=== PATIENT | male | born 1955 | race Caucasian/White ===

== ENCOUNTER 2018-01-13 22:50 | Inpatient (IN) | payer OTHER ==
[2018-01-14] MEDS: ONDANSETRON 4 MG INJ IV (01:35)
[2018-01-14] MEDS: morphine 4 MG/ML VIAL IV (01:35)
[2018-01-14] MEDS: ACETAMINOPHEN 325 MG TAB PO (01:35)
[2018-01-14] MEDS: SODIUM CHLORIDE 0.9% 1L BAG IV* (01:35)
[2018-01-14 01:47] LABS: ADD MAN DIFF? NO
[2018-01-14 01:50] LABS: BASOPHILS % 0.3 % (0.0-2.0); EOSINOPHILS # 0.1 10^3/ul (0.0-0.5); EOSINOPHILS % 0.6 % (0.0-7.0); HEMATOCRIT 41.7 % (42.0-52.0); HEMOGLOBIN 13.9 g/dl (14.0-18.0); LYMPHOCYTES # 2.2 10^3/ul (0.8-2.9); LYMPHOCYTES % 18.6 % (15.0-51.0); MEAN CORPUSCULAR HEMOGLOBIN 25.9 pg (29.0-33.0); MEAN CORPUSCULAR HGB CONC 33.3 g/dl (32.0-37.0); MEAN CORPUSCULAR VOLUME 77.7 fl (82.0-101.0); MEAN PLATELET VOLUME 10.1 fl (7.4-10.4); MONOCYTE # 0.7 10^3/ul (0.3-0.9); MONOCYTES % 6.2 % (0.0-11.0); NEUTROPHIL # 8.7 10^3/ul (1.6-7.5); NEUTROPHILS % 73.8 % (39.0-77.0); PLATELET COUNT 357 10^3/UL (140-415); RED BLOOD COUNT 5.37 10^6/ul (4.70-6.10); RED CELL DISTRIBUTION WIDTH 14.7 % (11.5-14.5)
[2018-01-14 01:50] LABS: WHITE BLOOD COUNT 11.7 10^3/ul (4.8-10.8)
[2018-01-14 02:16] LABS: INR 0.93; PARTIAL THROMBOPLASTIN TIME 27.9 Sec (25.0-35.0); PROTIME 12.6 Sec (11.9-14.9)
[2018-01-14 02:20] LABS: LACTIC ACID 1.3 mmol/L (0.5-2.0)
[2018-01-14 02:21] LABS: ALANINE AMINOTRANSFERASE 484 IU/L (13-69); ALBUMIN 4.5 g/dl (3.3-4.9); ALBUMIN/GLOBULIN RATIO 1.12; ALKALINE PHOSPHATASE 521 IU/L (42-121); ANION GAP 20 (8-16); ASPARTATE AMINO TRANSFERASE 170 IU/L (15-46); BILIRUBIN,INDIRECT 0.2 mg/dl (0-1.1); BILIRUBIN,TOTAL 0.2 mg/dl (0.2-1.3); BLOOD UREA NITROGEN 21 mg/dl (7-20); CALCIUM 9.3 mg/dl (8.4-10.2); CARBON DIOXIDE 22 mmol/L (21-31); CHLORIDE 102 mmol/L (97-110); CREATININE 1.13 mg/dl (0.61-1.24); GLUCOSE 258 mg/dl (70-220); POTASSIUM 4.6 mmol/L (3.5-5.1); SODIUM 139 mmol/L (135-144); TOTAL PROTEIN 8.5 g/dl (6.1-8.1)
[2018-01-14 02:34] LABS: TROPONIN-I < 0.012 ng/ml (0.00-0.12)
[2018-01-14 04:07] LABS: URINE BLOOD (Dip) POC Negative (NEGATIVE); URINE GLUCOSE (Dip) POC Negative (NEGATIVE); URINE KETONES (Dip) POC Negative (NEGATIVE); URINE LEUKOCYTE EST (Dip) POC Negative (NEGATIVE); URINE NITRITE (Dip) POC Negative (NEGATIVE); URINE TOTAL PROTEIN POC Negative (NEGATIVE)
[2018-01-14 04:33] LABS: LACTIC ACID 1.3 mmol/L (0.5-2.0)
[2018-01-14 07:11] LABS: LACTIC ACID 1.2 mmol/L (0.5-2.0)
[2018-01-14] MEDS ORDERED: morphine 2 MG INJ IV (10:00)
[2018-01-14] MEDS ORDERED: NACL 0.9% 3 ML SYG IV (10:00)
[2018-01-14] MEDS: SOD CHLORIDE 0.9% 1,000 ML IV ×2 (10:00→21:51)
[2018-01-14] MEDS ORDERED: ONDANSETRON 4 MG INJ IV (10:00)
[2018-01-14] MEDS ORDERED: HYDROCODONE/APAP (5/325) TAB PO (10:00)
[2018-01-14] MEDS ORDERED: ACETAMINOPHEN 325 MG TAB PO (10:00)
[2018-01-14] MEDS: PIPER-TAZO 3.375 GM IV (PMX) 100 ML IVPB ×2 (11:00→22:11)
[2018-01-14] MEDS ORDERED: morphine LIQ (10 MG/5 ML) CUP PO (11:00)
[2018-01-14] MEDS: INDOMETHACIN 50 MG SUPP PR (12:00)
[2018-01-14 14:48] LABS: LIPASE 190 U/L (23-300)
[2018-01-14] MEDS ORDERED: DEXTROSE 50% 50 ML SYRINGE IV ×2 (15:30)
[2018-01-14] MEDS ORDERED: GLUCOSE GEL 15 GRAM TUBE PO ×2 (15:30)
[2018-01-14] MEDS ORDERED: GLUCAGON 1 MG INJ IM (15:30)
[2018-01-14] MEDS ORDERED: GLUCOSE GEL 15 GRAM TUBE BUCCAL (15:30)
[2018-01-14] MEDS ORDERED: FISH OIL 1,000 MG CAP PO (21:00)
[2018-01-14] MEDS: INSULIN ASPART [NOVOLOG] 3 ML PEN SC ×2 (21:44→21:47)
[2018-01-14] MEDS: INSULIN DETEMIR [LEVEMIR] 3ML CART SC (21:48)
[2018-01-15] MEDS: INSULIN ASPART [NOVOLOG] 3 ML PEN SC ×7 (01:24→17:18)
[2018-01-15] MEDS ORDERED: ACCU-CHEK XX (02:00)
[2018-01-15] MEDS: SOD CHLORIDE 0.9% 1,000 ML IV ×3 (05:03→18:42)
[2018-01-15] MEDS: PANTOPRAZOLE 40 MG INJ IV (05:26)
[2018-01-15] MEDS: PIPER-TAZO 3.375 GM IV (PMX) 100 ML IVPB ×3 (05:27→21:31)
[2018-01-15 05:39] LABS: ADD MAN DIFF? NO
[2018-01-15 05:42] LABS: BASOPHILS % 0.7 % (0.0-2.0); EOSINOPHILS # 0.2 10^3/ul (0.0-0.5); EOSINOPHILS % 3.2 % (0.0-7.0); HEMATOCRIT 38.7 % (42.0-52.0); HEMOGLOBIN 12.7 g/dl (14.0-18.0); LYMPHOCYTES # 2.1 10^3/ul (0.8-2.9); LYMPHOCYTES % 35.6 % (15.0-51.0); MEAN CORPUSCULAR HEMOGLOBIN 25.8 pg (29.0-33.0); MEAN CORPUSCULAR HGB CONC 32.8 g/dl (32.0-37.0); MEAN CORPUSCULAR VOLUME 78.7 fl (82.0-101.0); MEAN PLATELET VOLUME 10.6 fl (7.4-10.4); MONOCYTE # 0.6 10^3/ul (0.3-0.9); NEUTROPHIL # 2.9 10^3/ul (1.6-7.5); NEUTROPHILS % 49.7 % (39.0-77.0); PLATELET COUNT 327 10^3/UL (140-415); RED BLOOD COUNT 4.92 10^6/ul (4.70-6.10); RED CELL DISTRIBUTION WIDTH 15.1 % (11.5-14.5)
[2018-01-15 05:42] LABS: WHITE BLOOD COUNT 5.9 10^3/ul (4.8-10.8)
[2018-01-15 06:06] LABS: ALANINE AMINOTRANSFERASE 411 IU/L (13-69); ALBUMIN 3.9 g/dl (3.3-4.9); ALBUMIN/GLOBULIN RATIO 1.18; ALKALINE PHOSPHATASE 498 IU/L (42-121); ANION GAP 17 (8-16); ASPARTATE AMINO TRANSFERASE 240 IU/L (15-46); BILIRUBIN,INDIRECT 0.1 mg/dl (0-1.1); BILIRUBIN,TOTAL 0.1 mg/dl (0.2-1.3); BLOOD UREA NITROGEN 18 mg/dl (7-20); CALCIUM 9.1 mg/dl (8.4-10.2); CARBON DIOXIDE 23 mmol/L (21-31); CHLORIDE 104 mmol/L (97-110); CREATININE 1.07 mg/dl (0.61-1.24); GLUCOSE 241 mg/dl (70-220); MAGNESIUM 1.9 mg/dl (1.7-2.5); PHOSPHORUS 4.5 mg/dl (2.5-4.9); SODIUM 140 mmol/L (135-144); TOTAL PROTEIN 7.2 g/dl (6.1-8.1)
[2018-01-15 06:10] LABS: INR 0.92; PROTIME 12.4 Sec (11.9-14.9)
[2018-01-15] MEDS: PANTOPRAZOLE (EC) 40 MG TAB PO (07:04)
[2018-01-15] MEDS ORDERED: ASPIRIN 81 MG TAB PO (09:00)
[2018-01-15] MEDS ORDERED: IOHEXOL 300MG/ML 30 ML BTL (11:24)
[2018-01-15] MEDS ORDERED: MIDAZOLAM 1 MG/ML 2 ML INJ (11:52)
[2018-01-15] MEDS ORDERED: ROCURONIUM 50 MG INJ (11:52)
[2018-01-15] MEDS ORDERED: PROPOFOL 20 ML (11:52)
[2018-01-15] MEDS ORDERED: FENTAnyl 50 MCG/ML VIAL (11:52)
[2018-01-15] MEDS ORDERED: GLYCOPYRROLATE 0.4 MG INJ (11:52)
[2018-01-15] MEDS ORDERED: CEFAZOLIN 1 GM INJ (11:52)
[2018-01-15] MEDS ORDERED: ONDANSETRON 4 MG INJ (11:52)
[2018-01-15] MEDS ORDERED: DEXAMETHASONE 4 MG/ML 1 ML INJ (11:52)
[2018-01-15] MEDS ORDERED: NEOSTIGMINE 3 MG/3 ML SYRINGE (11:52)
[2018-01-15] MEDS ORDERED: FENTAnyl 50 MCG/ML VIAL IV ×3 (12:00)
[2018-01-15] MEDS ORDERED: MEPERIDINE 25 MG INJ IV (12:00)
[2018-01-15] MEDS ORDERED: EPHEDrine SULFATE 50 MG/5 ML SYG IV (12:00)
[2018-01-15] MEDS ORDERED: MIDAZOLAM 1 MG/ML 2 ML INJ IV (12:00)
[2018-01-15] MEDS ORDERED: hydrALAzine 20 MG INJ IV (12:00)
[2018-01-15] MEDS ORDERED: ALBUTEROL 0.083% (NEB) 2.5 MG/3 ML AMP HHN (12:00)
[2018-01-15] MEDS ORDERED: DIPHENHYDRAMINE 50 MG INJ IV (12:00)
[2018-01-15] MEDS ORDERED: OXYCODONE/ACETAMINOPHEN (5/325) TAB PO ×2 (12:00)
[2018-01-15] MEDS ORDERED: LABETALOL HCL 20MG INJ IV (12:00)
[2018-01-15] MEDS ORDERED: TRIMETHOBENZAMIDE 100 MG/ML VIAL IM (12:00)
[2018-01-15] MEDS ORDERED: ONDANSETRON 4 MG INJ IV (12:00)
[2018-01-15] MEDS ORDERED: IPRATROPIUM (NEB) 0.5 MG/2.5 ML AMP HHN (12:00)
[2018-01-15] MEDS ORDERED: HYDROmorphONE (0.2 MG/ML) 10ML SYG IV ×3 (12:00)
[2018-01-15] MEDS ORDERED: EPINEPHrine 0.1 MG/ML SYG (12:35)
[2018-01-15] MEDS ORDERED: SUGAMMADEX SODIUM 200 MG/2 ML VIAL IV (12:40)
[2018-01-15] MEDS: INDOMETHACIN 50 MG SUPP PR (13:26)
[2018-01-15] MEDS: INSULIN DETEMIR [LEVEMIR] 3ML CART SC (21:29)
[2018-01-16 05:38] LABS: ADD MAN DIFF? NO
[2018-01-16] MEDS: PANTOPRAZOLE 40 MG INJ IV (05:41)
[2018-01-16] MEDS: PIPER-TAZO 3.375 GM IV (PMX) 100 ML IVPB ×3 (05:41→21:32)
[2018-01-16 05:42] LABS: HEMATOCRIT 39.1 % (42.0-52.0); LYMPHOCYTES # 1.8 10^3/ul (0.8-2.9); LYMPHOCYTES % 23.5 % (15.0-51.0); MEAN CORPUSCULAR HEMOGLOBIN 25.8 pg (29.0-33.0); MEAN CORPUSCULAR HGB CONC 33.2 g/dl (32.0-37.0); MEAN CORPUSCULAR VOLUME 77.6 fl (82.0-101.0); MEAN PLATELET VOLUME 10.5 fl (7.4-10.4); MONOCYTE # 0.3 10^3/ul (0.3-0.9); MONOCYTES % 3.4 % (0.0-11.0); NEUTROPHIL # 5.6 10^3/ul (1.6-7.5); NEUTROPHILS % 72.3 % (39.0-77.0); PLATELET COUNT 363 10^3/UL (140-415); RED BLOOD COUNT 5.04 10^6/ul (4.70-6.10); RED CELL DISTRIBUTION WIDTH 15.3 % (11.5-14.5)
[2018-01-16 05:42] LABS: WHITE BLOOD COUNT 7.8 10^3/ul (4.8-10.8)
[2018-01-16 06:07] LABS: PHOSPHORUS 4.7 mg/dl (2.5-4.9)
[2018-01-16 06:07] LABS: MAGNESIUM 1.8 mg/dl (1.7-2.5)
[2018-01-16 06:17] LABS: ALANINE AMINOTRANSFERASE 315 IU/L (13-69); ALBUMIN 3.9 g/dl (3.3-4.9); ALBUMIN/GLOBULIN RATIO 1.11; ALKALINE PHOSPHATASE 452 IU/L (42-121); ANION GAP 20 (8-16); ASPARTATE AMINO TRANSFERASE 85 IU/L (15-46); BILIRUBIN,INDIRECT 0.3 mg/dl (0-1.1); BILIRUBIN,TOTAL 0.3 mg/dl (0.2-1.3); BLOOD UREA NITROGEN 19 mg/dl (7-20); CARBON DIOXIDE 22 mmol/L (21-31); CHLORIDE 105 mmol/L (97-110); CREATININE 1.11 mg/dl (0.61-1.24); GLUCOSE 343 mg/dl (70-220); POTASSIUM 4.6 mmol/L (3.5-5.1); SODIUM 142 mmol/L (135-144); TOTAL PROTEIN 7.4 g/dl (6.1-8.1)
[2018-01-16] MEDS: PANTOPRAZOLE (EC) 40 MG TAB PO (07:49)
[2018-01-16] MEDS: INSULIN ASPART [NOVOLOG] 3 ML PEN SC ×3 (07:53→17:21)
[2018-01-16] MEDS: INSULIN DETEMIR [LEVEMIR] 3ML CART SC (21:32)
[2018-01-17] MEDS: PIPER-TAZO 3.375 GM IV (PMX) 100 ML IVPB (05:40)
[2018-01-17 06:17] LABS: ADD MAN DIFF? NO
[2018-01-17 06:23] LABS: BASOPHILS % 0.2 % (0.0-2.0); EOSINOPHILS % 0.5 % (0.0-7.0); HEMATOCRIT 37.3 % (42.0-52.0); LYMPHOCYTES # 3.3 10^3/ul (0.8-2.9); LYMPHOCYTES % 37.7 % (15.0-51.0); MEAN CORPUSCULAR HEMOGLOBIN 25.5 pg (29.0-33.0); MEAN CORPUSCULAR HGB CONC 32.2 g/dl (32.0-37.0); MEAN CORPUSCULAR VOLUME 79.2 fl (82.0-101.0); MEAN PLATELET VOLUME 10.3 fl (7.4-10.4); MONOCYTE # 0.6 10^3/ul (0.3-0.9); MONOCYTES % 6.3 % (0.0-11.0); NEUTROPHIL # 4.9 10^3/ul (1.6-7.5); PLATELET COUNT 365 10^3/UL (140-415); RED BLOOD COUNT 4.71 10^6/ul (4.70-6.10); RED CELL DISTRIBUTION WIDTH 15.5 % (11.5-14.5)
[2018-01-17 06:23] LABS: WHITE BLOOD COUNT 8.9 10^3/ul (4.8-10.8)
[2018-01-17 06:45] LABS: HEMOGLOBIN A1C 9.7 % (0-5.9)
[2018-01-17 06:48] LABS: ALANINE AMINOTRANSFERASE 225 IU/L (13-69); ALBUMIN 3.7 g/dl (3.3-4.9); ALBUMIN/GLOBULIN RATIO 1.15; ALKALINE PHOSPHATASE 367 IU/L (42-121); ANION GAP 15 (8-16); ASPARTATE AMINO TRANSFERASE 44 IU/L (15-46); BILIRUBIN,INDIRECT 0.4 mg/dl (0-1.1); BILIRUBIN,TOTAL 0.4 mg/dl (0.2-1.3); BLOOD UREA NITROGEN 23 mg/dl (7-20); CALCIUM 8.6 mg/dl (8.4-10.2); CARBON DIOXIDE 27 mmol/L (21-31); CHLORIDE 106 mmol/L (97-110); CREATININE 1.04 mg/dl (0.61-1.24); GLUCOSE 191 mg/dl (70-220); POTASSIUM 4.1 mmol/L (3.5-5.1); SODIUM 144 mmol/L (135-144); TOTAL PROTEIN 6.9 g/dl (6.1-8.1)
[2018-01-17] MEDS: INSULIN ASPART [NOVOLOG] 3 ML PEN SC ×2 (08:15→11:30)
[2018-01-17] MEDS: PANTOPRAZOLE (EC) 40 MG TAB PO (08:15)
== END 2018-01-17 15:29 | disposition home or self-care (01) | DRG 445 ==
LOC: FTE 22:50 → PP2 01-17 03:17 → MS3 01-14 06:08
PROC: 0FC98ZZ Extirpation of Matter from Common Bile Duct, Via Natural or Artificial Opening Endoscopic (ICD-10-PCS; principal; 2018-01-15 11:51)
PROC: 0F798DZ Dilation of Common Bile Duct with Intraluminal Device, Via Natural or Artificial Opening Endoscopic (ICD-10-PCS; 2018-01-15 11:51)
PROC: 0FPB8DZ Removal of Intraluminal Device from Hepatobiliary Duct, Via Natural or Artificial Opening Endoscopic (ICD-10-PCS; 2018-01-15 11:51)
DX: K80.30 Calculus of bile duct with cholangitis, unspecified, without obstruction (principal); T85.898A Other specified complication of other internal prosthetic devices, implants and grafts, initial encounter; I10 Essential (primary) hypertension; E78.5 Hyperlipidemia, unspecified; E11.9 Type 2 diabetes mellitus without complications; E66.9 Obesity, unspecified; Y83.8 Other surgical procedures as the cause of abnormal reaction of the patient, or of later complication, without mention of misadventure at the time of the procedure; Y92.89 Other specified places as the place of occurrence of the external cause; Z68.29 Body mass index [BMI] 29.0-29.9, adult; Z86.19 Personal history of other infectious and parasitic diseases
CPT/HCPCS: 36415; 71045; 74176; 74330; 80053; 81003; 82962; 83036; 83605; 83690; 83735; 84100; 84484; 85025; 85610; 85730; 87040; 93005; 96365; 96366; 96375; 99285-25

== ENCOUNTER 2018-03-06 07:33 | Day surgery (SDC) | payer OTHER ==
[~2018-03-06 07:33] MED LIST: CEFAZOLIN 2 GM/50 ML (PMX) 50 ML IVPB; SOD CHLORIDE 0.9% 1,000 ML IV
[2018-03-06] MEDS: INSULIN ASPART [NOVOLOG] 3 ML PEN SC ×2 (09:05→09:08)
[2018-03-06] MEDS ORDERED: MIDAZOLAM 1 MG/ML 2 ML INJ (09:06)
[2018-03-06] MEDS ORDERED: CEFAZOLIN 1 GM INJ (09:06)
[2018-03-06] MEDS ORDERED: ROCURONIUM 50 MG INJ (09:06)
[2018-03-06] MEDS ORDERED: ROPIVACAINE 0.5 % 30 ML VIAL (09:06)
[2018-03-06] MEDS ORDERED: PROPOFOL 20 ML (09:06)
[2018-03-06] MEDS ORDERED: EPHEDrine SULFATE 50 MG/5 ML SYG IV (09:30)
[2018-03-06] MEDS ORDERED: METOCLOPRAMIDE 10 MG INJ IV (09:30)
[2018-03-06] MEDS ORDERED: HYDROmorphONE (0.2 MG/ML) 10ML SYG IV ×2 (09:30)
[2018-03-06] MEDS ORDERED: OXYCODONE/ACETAMINOPHEN (5/325) TAB PO ×2 (09:30)
[2018-03-06] MEDS ORDERED: LABETALOL HCL 20MG INJ IV (09:30)
[2018-03-06] MEDS ORDERED: FENTAnyl 50 MCG/ML VIAL IV ×3 (09:30)
[2018-03-06] MEDS ORDERED: MEPERIDINE 25 MG INJ IV (09:30)
[2018-03-06] MEDS ORDERED: DIPHENHYDRAMINE 50 MG INJ IV (09:30)
[2018-03-06] MEDS ORDERED: ONDANSETRON 4 MG INJ IV (09:30)
[2018-03-06] MEDS ORDERED: hydrALAzine 20 MG INJ IV (09:30)
[2018-03-06] MEDS ORDERED: EPHEDrine SULFATE 50 MG/5 ML SYG (10:19)
[2018-03-06] MEDS ORDERED: PHENYLephrine (100 MCG/ML) 5ML SYG (10:19)
[2018-03-06] MEDS: BUPIVACAINE 0.25% (MPF) 30 ML INJ (10:24)
[2018-03-06] MEDS ORDERED: LABETALOL HCL 20MG INJ (10:25)
[2018-03-06] MEDS ORDERED: ONDANSETRON 4 MG INJ (10:32)
[2018-03-06] MEDS ORDERED: METOCLOPRAMIDE 10 MG INJ (10:32)
[2018-03-06] MEDS ORDERED: SUGAMMADEX SODIUM 200 MG/2 ML VIAL IV (10:33)
[2018-03-06] MEDS ORDERED: KETOROLAC 30 MG INJ (10:33)
[2018-03-06] MEDS ORDERED: DEXAMETHASONE 4 MG/ML 1 ML INJ (10:33)
[2018-03-06] MEDS ORDERED: ACETAMINOPHEN 1000MG/100ML IV 100 ML (10:34)
[2018-03-06] MEDS: HYDROmorphONE (0.2 MG/ML) 10ML SYG IV (11:10)
[2018-03-06] MEDS: HYDROCODONE/APAP (5/325) TAB PO (11:38)
== END 2018-03-06 13:35 | disposition home or self-care (01) ==
LOC: SDS 07:33
DX: K80.20 Calculus of gallbladder without cholecystitis without obstruction (principal); K80.10 Calculus of gallbladder with chronic cholecystitis without obstruction; E11.9 Type 2 diabetes mellitus without complications; I10 Essential (primary) hypertension; E78.5 Hyperlipidemia, unspecified
CPT/HCPCS: 47562; 82962; 88304

== ENCOUNTER → 2018-07-08 | Day surgery (SDC) | payer MEDICARE, OTHER ==
[~2018-07-08] MED LIST changes: -CEFAZOLIN 2 GM/50 ML (PMX) 50 ML IVPB; +HYDROCODONE/APAP (5/325) TAB PO
[2018-07-08] MEDS: CEFAZOLIN 1 GM/50 ML (PMX) 50 ML IVPB ×2 (08:30→10:30)
[2018-07-08] MEDS: FENTAnyl 50 MCG/ML VIAL (10:45)
[2018-07-08] MEDS: MIDAZOLAM 1 MG/ML 2 ML INJ (10:55)
[2018-07-08] MEDS: HEPARIN 1000 UNITS/ML 10 ML INJ (11:00)
[2018-07-08] MEDS: LIDOCAINE 1%/EPI 30 ML INJ (11:00)
[2018-07-08] MEDS: POLYMYXIN/BACITRACIN 1L IRRIG IRR (11:00)
== END | disposition home or self-care (01) ==
LOC: SDS 07:51
DX: C24.0 Malignant neoplasm of extrahepatic bile duct (principal); E11.9 Type 2 diabetes mellitus without complications
CPT/HCPCS: 36561; 76942; 82962

== ENCOUNTER 2018-10-15 22:30 | Inpatient (IN) | payer MEDICARE, OTHER ==
[2018-10-15] MEDS ORDERED: SODIUM CHLORIDE 0.9% 1L BAG IV* (23:28)
[2018-10-15 23:50] LABS: WHITE BLOOD COUNT 20.2 10^3/ul (4.8-10.8)
[2018-10-15 23:50] LABS: ABNORMAL IP MESSAGE 1; ADD MAN DIFF? NO; BASOPHIL # 0.1 10^3/ul (0.0-0.1); BASOPHILS % 0.2 % (0.0-2.0); HEMOGLOBIN 8.8 g/dl (14.0-18.0); LYMPHOCYTES # 1.9 10^3/ul (0.8-2.9); LYMPHOCYTES % 9.2 % (15.0-51.0); MEAN CORPUSCULAR HEMOGLOBIN 27.8 pg (29.0-33.0); MEAN CORPUSCULAR HGB CONC 32.6 g/dl (32.0-37.0); MEAN CORPUSCULAR VOLUME 85.4 fl (82.0-101.0); MEAN PLATELET VOLUME 9.5 fl (7.4-10.4); MONOCYTE # 1.6 10^3/ul (0.3-0.9); NEUTROPHIL # 16.4 10^3/ul (1.6-7.5); NEUTROPHILS % 80.9 % (39.0-77.0); PLATELET COUNT 485 10^3/UL (140-415); POSITIVE DIFF @See below; RED BLOOD COUNT 3.16 10^6/ul (4.70-6.10); RED CELL DISTRIBUTION WIDTH 24.5 % (11.5-14.5)
[2018-10-16 00:07] LABS: ADD UMIC YES; UR ASCORBIC ACID NEGATIVE (NEGATIVE); UR BILIRUBIN (Dip) NEGATIVE (NEGATIVE); UR BLOOD (Dip) NEGATIVE (NEGATIVE); UR CLARITY SLIGHTLY CLOUDY (CLEAR); UR COLOR AMBER (YELLOW); UR GLUCOSE (Dip) NEGATIVE (NEGATIVE); UR KETONES (Dip) NEGATIVE (NEGATIVE); UR LEUKOCYTE ESTERASE (Dip) NEGATIVE Leu/ul (NEGATIVE); UR MUCUS MANY /HPF (NONE SEEN); UR NITRITE (Dip) NEGATIVE (NEGATIVE); UR RBC 1 /HPF (0-5); UR SPECIFIC GRAVITY (Dip) 1.021 (1.003-1.030); UR TOTAL PROTEIN (Dip) 1+ mg/dl (NEGATIVE); UR UROBILINOGEN (Dip) 1+ mg/dL (NEGATIVE); UR WBC 4 /HPF (0-5)
[2018-10-16 00:08] LABS: ALANINE AMINOTRANSFERASE 50 IU/L (13-69); ALBUMIN/GLOBULIN RATIO 0.76; ALKALINE PHOSPHATASE 640 IU/L (42-121); ANION GAP 14 (5-13); ASPARTATE AMINO TRANSFERASE 278 IU/L (15-46); BILIRUBIN,INDIRECT 0.8 mg/dl (0-1.1); BLOOD UREA NITROGEN 21 mg/dl (7-20); CALCIUM 8.3 mg/dl (8.4-10.2); CARBON DIOXIDE 27 mmol/L (21-31); CHLORIDE 94 mmol/L (97-110); CREATININE 1.19 mg/dl (0.61-1.24); Estimated GFR > 60 mL/min (>60); GLUCOSE 117 mg/dl (70-220); POTASSIUM 4.2 mmol/L (3.5-5.1); SODIUM 135 mmol/L (135-144); TOTAL PROTEIN 6.9 g/dl (6.1-8.1)
[2018-10-16 00:16] LABS: INR 1.34; PROTIME 16.7 Sec (11.9-14.9); PT RATIO 1.3
[2018-10-16 00:17] LABS: PARTIAL THROMBOPLASTIN TIME 31.1 Sec (23.0-35.0)
[2018-10-16 00:20] LABS: TROPONIN-I < 0.012 ng/ml (0.000-0.120)
[2018-10-16] MEDS: PIPER-TAZO 3.375 GM IV (PMX) 100 ML IVPB ×5 (00:27→23:58)
[2018-10-16] MEDS: SOD CHLORIDE 0.9% IV (00:27)
[2018-10-16 00:40] LABS: B-TYPE NATRIURETIC PEPTIDE 1020 PG/ML (0-125)
[2018-10-16] MEDS ORDERED: ONDANSETRON 4 MG INJ (01:59)
[2018-10-16] MEDS: ONDANSETRON 4 MG INJ IV (02:01)
[2018-10-16] MEDS: VANCOMYCIN 1 GM (PMX) 250 ML IVPB (02:01)
[2018-10-16] MEDS ORDERED: NACL 0.9% 3 ML SYG IV (03:30)
[2018-10-16] MEDS ORDERED: ONDANSETRON 4 MG INJ IV (03:30)
[2018-10-16] MEDS: SOD CHLORIDE 0.9% 1,000 ML IV ×4 (03:43→19:51)
[2018-10-16] MEDS ORDERED: VANCOMYCIN IV PER PHARMACY XX (04:00)
[2018-10-16 04:23] LABS: LACTIC ACID 2.6 mmol/L (0.5-2.0)
[2018-10-16 09:35] LABS: LACTIC ACID 2.3 mmol/L (0.5-2.0)
[2018-10-16] MEDS: VANCOMYCIN 750 MG (PMX) 250 ML IVPB (14:28)
[2018-10-16 15:27] LABS: LACTIC ACID 2.2 mmol/L (0.5-2.0)
[2018-10-16] MEDS ORDERED: GLUCOSE GEL 15 GRAM TUBE BUCCAL (16:30)
[2018-10-16] MEDS ORDERED: GLUCOSE GEL 15 GRAM TUBE PO ×2 (16:30)
[2018-10-16] MEDS ORDERED: DEXTROSE 50% 50 ML SYRINGE IV ×2 (16:30)
[2018-10-16] MEDS ORDERED: GLUCAGON 1 MG INJ IM (16:30)
[2018-10-16] MEDS ORDERED: SUCCINYLCHOLINE CHLORIDE 100 MG/5 ML SYG IV (17:40)
[2018-10-16] MEDS ORDERED: PROPOFOL 20 ML (17:40)
[2018-10-16] MEDS ORDERED: IOHEXOL 300MG/ML 30 ML BTL (17:40)
[2018-10-16] MEDS ORDERED: LIDOCAINE 2% (SDV) 5 ML INJ (17:40)
[2018-10-16] MEDS: INSULIN ASPART [NOVOLOG] 3 ML PEN SC ×2 (17:55→21:00)
[2018-10-16] MEDS: PANTOPRAZOLE 40 MG INJ IV (18:13)
[2018-10-17] MEDS ORDERED: ACCU-CHEK XX (02:00)
[2018-10-17] MEDS: VANCOMYCIN 750 MG (PMX) 250 ML IVPB (02:14)
[2018-10-17] MEDS: PANTOPRAZOLE 40 MG INJ IV ×2 (05:43→17:53)
[2018-10-17] MEDS: INSULIN ASPART [NOVOLOG] 3 ML PEN SC ×5 (05:43→20:53)
[2018-10-17] MEDS: PIPER-TAZO 3.375 GM IV (PMX) 100 ML IVPB ×4 (05:44→23:34)
[2018-10-17] MEDS ORDERED: SEVOFLURANE 15 MIN (07:00)
[2018-10-17] MEDS ORDERED: LIDOCAINE 2% (SDV) 5 ML INJ (07:00)
[2018-10-17] MEDS ORDERED: SUCCINYLCHOLINE CHLORIDE 100 MG/5 ML SYG IV (07:00)
[2018-10-17] MEDS ORDERED: ETOMIDATE 20 MG INJ (07:00)
[2018-10-17] MEDS: SOD CHLORIDE 0.9% 1,000 ML IV (09:06)
[2018-10-17 09:20] LABS: OCCULT BLOOD STOOL NEGATIVE (NEGATIVE)
[2018-10-17] MEDS ORDERED: MIDAZOLAM 1 MG/ML 2 ML INJ (11:55)
[2018-10-17] MEDS ORDERED: FENTAnyl 50 MCG/ML VIAL IV (12:00)
[2018-10-17] MEDS ORDERED: HYDROmorphONE 1 MG/5 ML IV SYRINGE IV ×2 (12:00)
[2018-10-17] MEDS ORDERED: DIPHENHYDRAMINE 50 MG INJ IV (12:00)
[2018-10-17] MEDS ORDERED: ONDANSETRON 4 MG INJ IV (12:00)
[2018-10-17] MEDS ORDERED: PROCHLORPERAZINE 10 MG INJ IV (12:00)
[2018-10-17] MEDS ORDERED: MEPERIDINE 25 MG INJ IV (12:00)
[2018-10-17] MEDS ORDERED: CEFAZOLIN 1 GM INJ (12:14)
[2018-10-17] MEDS ORDERED: ONDANSETRON 4 MG INJ (12:16)
[2018-10-17] MEDS ORDERED: FAMOTIDINE 20 MG INJ (12:16)
[2018-10-17] MEDS ORDERED: FENTAnyl 50 MCG/ML VIAL (12:25)
[2018-10-17] MEDS ORDERED: GLUCAGON 1 MG INJ (12:48)
[2018-10-17 15:27] LABS: ADD MAN DIFF? NO
[2018-10-17 15:29] LABS: ABNORMAL IP MESSAGE 1; BASOPHILS % 0.2 % (0.0-2.0); HEMATOCRIT 30.8 % (42.0-52.0); HEMOGLOBIN 9.8 g/dl (14.0-18.0); LYMPHOCYTES # 1.8 10^3/ul (0.8-2.9); LYMPHOCYTES % 8.4 % (15.0-51.0); MEAN CORPUSCULAR HEMOGLOBIN 27.6 pg (29.0-33.0); MEAN CORPUSCULAR HGB CONC 31.8 g/dl (32.0-37.0); MEAN CORPUSCULAR VOLUME 86.8 fl (82.0-101.0); MONOCYTES % 4.7 % (0.0-11.0); NEUTROPHIL # 18.8 10^3/ul (1.6-7.5); NEUTROPHILS % 85.2 % (39.0-77.0); PLATELET COUNT 435 10^3/UL (140-415); POSITIVE DIFF @See below; RED BLOOD COUNT 3.55 10^6/ul (4.70-6.10); RED CELL DISTRIBUTION WIDTH 24.5 % (11.5-14.5)
[2018-10-17 15:56] LABS: ANION GAP 9 (5-13); BLOOD UREA NITROGEN 32 mg/dl (7-20); CALCIUM 7.5 mg/dl (8.4-10.2); CARBON DIOXIDE 20 mmol/L (21-31); CHLORIDE 105 mmol/L (97-110); CREATININE 1.96 mg/dl (0.61-1.24); Estimated GFR 34 mL/min (>60); GLUCOSE 94 mg/dl (70-220); POTASSIUM 4.1 mmol/L (3.5-5.1); SODIUM 134 mmol/L (135-144)
[2018-10-17] MEDS: VANCOMYCIN 1 GM 250 ML IVPB (20:29)
[2018-10-18] MEDS: SOD CHLORIDE 0.9% 1,000 ML IV (03:15)
[2018-10-18] MEDS: PIPER-TAZO 3.375 GM IV (PMX) 100 ML IVPB (05:33)
[2018-10-18] MEDS: PANTOPRAZOLE 40 MG INJ IV ×2 (05:33→17:43)
[2018-10-18 06:16] LABS: ADD MAN DIFF? NO
[2018-10-18 06:23] LABS: WHITE BLOOD COUNT 18.6 10^3/ul (4.8-10.8)
[2018-10-18 06:23] LABS: ABNORMAL IP MESSAGE 1; BASOPHIL # 0.1 10^3/ul (0.0-0.1); BASOPHILS % 0.3 % (0.0-2.0); HEMATOCRIT 25.7 % (42.0-52.0); HEMOGLOBIN 8.3 g/dl (14.0-18.0); LYMPHOCYTES # 2.1 10^3/ul (0.8-2.9); LYMPHOCYTES % 11.5 % (15.0-51.0); MEAN CORPUSCULAR HGB CONC 32.3 g/dl (32.0-37.0); MEAN CORPUSCULAR VOLUME 86.8 fl (82.0-101.0); MEAN PLATELET VOLUME 10.1 fl (7.4-10.4); MONOCYTE # 1.1 10^3/ul (0.3-0.9); MONOCYTES % 5.7 % (0.0-11.0); NEUTROPHIL # 15.2 10^3/ul (1.6-7.5); NEUTROPHILS % 81.5 % (39.0-77.0); PLATELET COUNT 401 10^3/UL (140-415); POSITIVE DIFF @See below; RED BLOOD COUNT 2.96 10^6/ul (4.70-6.10); RED CELL DISTRIBUTION WIDTH 23.8 % (11.5-14.5)
[2018-10-18 07:07] LABS: ANION GAP 9 (5-13); BLOOD UREA NITROGEN 32 mg/dl (7-20); CALCIUM 7.2 mg/dl (8.4-10.2); CARBON DIOXIDE 18 mmol/L (21-31); CHLORIDE 109 mmol/L (97-110); Estimated GFR 30 mL/min (>60); GLUCOSE 83 mg/dl (70-220); POTASSIUM 3.9 mmol/L (3.5-5.1); SODIUM 136 mmol/L (135-144)
[2018-10-18] MEDS: INSULIN ASPART [NOVOLOG] 3 ML PEN SC ×4 (08:00→20:37)
[2018-10-18] MEDS: PIPER-TAZO 2.25 GM (PMX) 50 ML IVPB ×3 (11:37→23:24)
[2018-10-18] MEDS: FUROSEMIDE 20 MG INJ IV (17:44)
[2018-10-18] MEDS: VANCOMYCIN 1 GM 250 ML IVPB (20:38)
[2018-10-18] MEDS: ACETAMINOPHEN 325 MG TAB PO (23:24)
[2018-10-19 05:29] LABS: ADD MAN DIFF? NO
[2018-10-19] MEDS: PIPER-TAZO 2.25 GM (PMX) 50 ML IVPB ×2 (05:39→12:22)
[2018-10-19] MEDS: PANTOPRAZOLE 40 MG INJ IV ×2 (05:39→17:31)
[2018-10-19] MEDS: SOD CHLORIDE 0.9% 1,000 ML IV (05:42)
[2018-10-19 05:46] LABS: WHITE BLOOD COUNT 19.3 10^3/ul (4.8-10.8)
[2018-10-19 05:46] LABS: ABNORMAL IP MESSAGE 1; BASOPHILS % 0.2 % (0.0-2.0); HEMATOCRIT 26.4 % (42.0-52.0); HEMOGLOBIN 8.8 g/dl (14.0-18.0); LYMPHOCYTES # 2.7 10^3/ul (0.8-2.9); LYMPHOCYTES % 13.7 % (15.0-51.0); MEAN CORPUSCULAR HEMOGLOBIN 28.1 pg (29.0-33.0); MEAN CORPUSCULAR HGB CONC 33.3 g/dl (32.0-37.0); MEAN CORPUSCULAR VOLUME 84.3 fl (82.0-101.0); MEAN PLATELET VOLUME 9.9 fl (7.4-10.4); MONOCYTES % 5.2 % (0.0-11.0); NEUTROPHIL # 15.4 10^3/ul (1.6-7.5); NEUTROPHILS % 79.8 % (39.0-77.0); NUCLEATED RED BLOOD CELLS% 0.2 /100WBC (0.0-0.0); PLATELET COUNT 401 10^3/UL (140-415); POSITIVE DIFF @See below; RED BLOOD COUNT 3.13 10^6/ul (4.70-6.10); RED CELL DISTRIBUTION WIDTH 23.6 % (11.5-14.5)
[2018-10-19 07:34] LABS: ALANINE AMINOTRANSFERASE 27 IU/L (13-69); ALBUMIN 2.5 g/dl (3.3-4.9); ALBUMIN/GLOBULIN RATIO 0.69; ALKALINE PHOSPHATASE 557 IU/L (42-121); ANION GAP 12 (5-13); ASPARTATE AMINO TRANSFERASE 231 IU/L (15-46); BILIRUBIN,INDIRECT 0.4 mg/dl (0-1.1); BILIRUBIN,TOTAL 1.1 mg/dl (0.2-1.3); BLOOD UREA NITROGEN 31 mg/dl (7-20); CALCIUM 7.7 mg/dl (8.4-10.2); CARBON DIOXIDE 14 mmol/L (21-31); CHLORIDE 109 mmol/L (97-110); CREATININE 2.54 mg/dl (0.61-1.24); Estimated GFR 26 mL/min (>60); GLUCOSE 87 mg/dl (70-220); POTASSIUM 3.8 mmol/L (3.5-5.1); SODIUM 135 mmol/L (135-144); TOTAL PROTEIN 6.1 g/dl (6.1-8.1)
[2018-10-19] MEDS: INSULIN ASPART [NOVOLOG] 3 ML PEN SC ×4 (08:00→20:27)
[2018-10-19] MEDS: ACETAMINOPHEN 325 MG TAB PO (16:10)
[2018-10-19] MEDS: CEFEPIME 1GM/50 ML (PMX) 50 ML IVPB (16:10)
[2018-10-19 17:09] LABS: IRON 31 ug/dl (35-150)
[2018-10-19 17:12] LABS: VANCOMYCIN,TROUGH 19.5 ug/ml (10.0-20.0)
[2018-10-19 17:18] LABS: % IRON SATURATION 20 % SAT (22-52); TOTAL IRON BINDING CAPACITY 158 ug/dl (241-421)
[2018-10-19 18:22] LABS: ADD UMIC YES; UR AMORPHOUS CRYSTAL MODERATE /HPF (NONE SEEN); UR ASCORBIC ACID NEGATIVE (NEGATIVE); UR BACTERIA FEW /HPF (NONE SEEN); UR BILIRUBIN (Dip) NEGATIVE (NEGATIVE); UR BLOOD (Dip) 3+ mg/dL (NEGATIVE); UR CLARITY SLIGHTLY CLOUDY (CLEAR); UR COLOR YELLOW (YELLOW); UR GLUCOSE (Dip) NEGATIVE (NEGATIVE); UR KETONES (Dip) NEGATIVE (NEGATIVE); UR LEUKOCYTE ESTERASE (Dip) NEGATIVE Leu/ul (NEGATIVE); UR MUCUS FEW /HPF (NONE SEEN); UR NITRITE (Dip) NEGATIVE (NEGATIVE); UR RBC 1 /HPF (0-5); UR SPECIFIC GRAVITY (Dip) 1.016 (1.003-1.030); UR TOTAL PROTEIN (Dip) NEGATIVE (NEGATIVE); UR UROBILINOGEN (Dip) NEGATIVE (NEGATIVE); UR WBC 3 /HPF (0-5)
[2018-10-19] MEDS: NA BICARBONATE 650 MG TAB PO (20:27)
[2018-10-20] MEDS: ACETAMINOPHEN 325 MG TAB PO (01:41)
[2018-10-20 05:23] LABS: ADD MAN DIFF? NO
[2018-10-20 05:27] LABS: RETICULOCYTE RBC 2.98
[2018-10-20 05:27] LABS: RETICULOCYTE COUNT # 0.055 X10^6 (0.020-0.110); RETICULOCYTE COUNT % 1.9 % (0.5-1.5)
[2018-10-20 05:29] LABS: ABNORMAL IP MESSAGE 1; BASOPHIL # 0.1 10^3/ul (0.0-0.1); BASOPHILS % 0.2 % (0.0-2.0); HEMATOCRIT 25.8 % (42.0-52.0); HEMOGLOBIN 8.1 g/dl (14.0-18.0); LYMPHOCYTES # 1.4 10^3/ul (0.8-2.9); LYMPHOCYTES % 5.5 % (15.0-51.0); MEAN CORPUSCULAR HEMOGLOBIN 27.6 pg (29.0-33.0); MEAN CORPUSCULAR HGB CONC 31.4 g/dl (32.0-37.0); MEAN CORPUSCULAR VOLUME 88.1 fl (82.0-101.0); MEAN PLATELET VOLUME 10.2 fl (7.4-10.4); MONOCYTE # 1.2 10^3/ul (0.3-0.9); MONOCYTES % 4.8 % (0.0-11.0); NEUTROPHIL # 22.1 10^3/ul (1.6-7.5); NEUTROPHILS % 88.5 % (39.0-77.0); PLATELET COUNT 432 10^3/UL (140-415); POSITIVE DIFF @See below; RED BLOOD COUNT 2.93 10^6/ul (4.70-6.10); RED CELL DISTRIBUTION WIDTH 23.9 % (11.5-14.5)
[2018-10-20] MEDS: PANTOPRAZOLE 40 MG INJ IV ×2 (05:31→17:00)
[2018-10-20 05:41] LABS: ALANINE AMINOTRANSFERASE 33 IU/L (13-69); ALBUMIN 2.5 g/dl (3.3-4.9); ALKALINE PHOSPHATASE 576 IU/L (42-121); ASPARTATE AMINO TRANSFERASE 221 IU/L (15-46); BILIRUBIN,INDIRECT 0.4 mg/dl (0-1.1); TOTAL PROTEIN 5.8 g/dl (6.1-8.1)
[2018-10-20 05:47] LABS: ALANINE AMINOTRANSFERASE 25 IU/L (13-69); ALBUMIN 2.6 g/dl (3.3-4.9); ALBUMIN/GLOBULIN RATIO 0.74; ALKALINE PHOSPHATASE 583 IU/L (42-121); ANION GAP 12 (5-13); ASPARTATE AMINO TRANSFERASE 221 IU/L (15-46); BILIRUBIN,INDIRECT 0.4 mg/dl (0-1.1); BILIRUBIN,TOTAL 1.1 mg/dl (0.2-1.3); BLOOD UREA NITROGEN 28 mg/dl (7-20); CALCIUM 7.9 mg/dl (8.4-10.2); CARBON DIOXIDE 16 mmol/L (21-31); CHLORIDE 109 mmol/L (97-110); CREATININE 2.38 mg/dl (0.61-1.24); Estimated GFR 28 mL/min (>60); GLUCOSE 99 mg/dl (70-220); POTASSIUM 3.5 mmol/L (3.5-5.1); SODIUM 137 mmol/L (135-144); TOTAL PROTEIN 6.1 g/dl (6.1-8.1)
[2018-10-20 05:49] LABS: PHOSPHORUS 3.7 mg/dl (2.5-4.9)
[2018-10-20 05:49] LABS: MAGNESIUM 2.1 mg/dl (1.7-2.5)
[2018-10-20 06:50] LABS: FOLATE 5.8 ng/ml (2.8-20.0)
[2018-10-20 07:18] LABS: LIPASE 19127 U/L (23-300)
[2018-10-20] MEDS: INSULIN ASPART [NOVOLOG] 3 ML PEN SC ×4 (08:00→20:52)
[2018-10-20] MEDS: NA BICARBONATE 650 MG TAB PO ×3 (08:14→20:52)
[2018-10-20] MEDS ORDERED: morphine 2 MG INJ IV (09:30)
[2018-10-20] MEDS: morphine SULFATE/PF (2 MG/2 ML) SYG IV ×3 (09:53→18:18)
[2018-10-20] MEDS: SOD CHLORIDE 0.9% 1,000 ML IV (09:54)
[2018-10-20] MEDS: DEXTROSE 5%-0.45% NACL 1,000 ML IV (12:53)
[2018-10-20] MEDS: CEFEPIME 1GM/50 ML (PMX) 50 ML IVPB (14:09)
[2018-10-20] MEDS: SOD FERRIC GLUC COMPLX 125 MG in SOD CHLORIDE 0.9% 100 ML IVPB (16:54)
[2018-10-20] MEDS: MEROPENEM 500MG/50 ML (PMX) 50 ML IVPB (20:52)
[2018-10-21] MEDS: INSULIN ASPART [NOVOLOG] 3 ML PEN SC ×6 (00:49→21:00)
[2018-10-21] MEDS: PANTOPRAZOLE 40 MG INJ IV ×2 (05:41→17:30)
[2018-10-21 06:48] LABS: ALANINE AMINOTRANSFERASE 36 IU/L (13-69); ALBUMIN 2.4 g/dl (3.3-4.9); ALKALINE PHOSPHATASE 603 IU/L (42-121); AMYLASE 607 U/L (11-123); ASPARTATE AMINO TRANSFERASE 263 IU/L (15-46); BILIRUBIN,INDIRECT 0.3 mg/dl (0-1.1); TOTAL PROTEIN 5.8 g/dl (6.1-8.1)
[2018-10-21 06:52] LABS: CHOL/HDL RATIO 14.8 RATIO; HDL CHOLESTEROL 13 mg/dl (30-78); LDL CHOLESTEROL,CALCULATED 132 mg/dl; TRIGLYCERIDES 239 mg/dl (0-149)
[2018-10-21 06:52] LABS: CHOLESTEROL 193 mg/dl (100-200)
[2018-10-21] MEDS: MEROPENEM 500MG/50 ML (PMX) 50 ML IVPB ×2 (08:10→21:19)
[2018-10-21] MEDS: NA BICARBONATE 650 MG TAB PO ×3 (08:12→21:19)
[2018-10-21 10:22] LABS: ABNORMAL IP MESSAGE 1; HEMATOCRIT 26.1 % (42.0-52.0); HEMOGLOBIN 8.3 g/dl (14.0-18.0); MEAN CORPUSCULAR HEMOGLOBIN 27.9 pg (29.0-33.0); MEAN CORPUSCULAR HGB CONC 31.8 g/dl (32.0-37.0); MEAN CORPUSCULAR VOLUME 87.9 fl (82.0-101.0); MEAN PLATELET VOLUME 9.7 fl (7.4-10.4); PLATELET COUNT 334 10^3/UL (140-415); POSITIVE DIFF @See below; RED BLOOD COUNT 2.97 10^6/ul (4.70-6.10); RED CELL DISTRIBUTION WIDTH 24.7 % (11.5-14.5)
[2018-10-21 10:24] LABS: ADD MAN DIFF? YES
[2018-10-21 11:01] LABS: ANION GAP 10 (5-13); BLOOD UREA NITROGEN 29 mg/dl (7-20); CALCIUM 7.7 mg/dl (8.4-10.2); CARBON DIOXIDE 21 mmol/L (21-31); CHLORIDE 109 mmol/L (97-110); CREATININE 1.87 mg/dl (0.61-1.24); Estimated GFR 36 mL/min (>60); GLUCOSE 98 mg/dl (70-220); POTASSIUM 3.8 mmol/L (3.5-5.1); SODIUM 140 mmol/L (135-144)
[2018-10-21 12:20] LABS: ANISOCYTOSIS 2+ (0-0); BAND NEUTROPHILS #M 0.5 10^3/ul (0.0-0.6); BAND NEUTROPHILS % (M) 2 % (0-4); EOSINOPHILS % (M) 1 % (0-7); HYPOCHROMASIA 1+ (0-0); LYMPHOCYTES #M 0.7 10^3/ul (0.8-2.9); LYMPHOCYTES % (M) 3 % (15-51); MONOCYTE #M 0.5 10^3/ul (0.3-0.9); MONOCYTES % (M) 2 % (0-11); PLATELET ESTIMATE NORMAL; POLYCHROMASIA 1+ (0-0); SEG NEUT #M 24.1 10^3/ul (1.6-7.5); SEGMENTED NEUTROPHILS (M) % 92 % (39-77); SMUDGE%M 8 % (0-0); TARGET CELLS 1+ (0-0)
[2018-10-21] MEDS ORDERED: LACTATED RINGER'S 1,000 ML IV ×2 (12:30)
[2018-10-21 12:35] LABS: LACTATE DEHYDROGENASE 4152 IU/L (313-618)
[2018-10-21] MEDS: LACTATED RINGER'S 1,000 ML IV (12:41)
[2018-10-21] MEDS: DEXTROSE 5%-0.45% NACL 1,000 ML IV (15:58)
[2018-10-21] MEDS: morphine SULFATE/PF (2 MG/2 ML) SYG IV (17:29)
[2018-10-21] MEDS: CALCIUM GLUCONATE 10% 1 GM in DEXTROSE 5% 100 ML IVPB (17:30)
[2018-10-22] MEDS: INSULIN ASPART [NOVOLOG] 3 ML PEN SC ×6 (01:00→22:47)
[2018-10-22] MEDS: morphine SULFATE/PF (2 MG/2 ML) SYG IV ×4 (01:27→23:07)
[2018-10-22] MEDS: DEXTROSE 5%-0.45% NACL 1,000 ML IV ×3 (03:35→22:56)
[2018-10-22] MEDS: PANTOPRAZOLE 40 MG INJ IV ×2 (05:09→17:51)
[2018-10-22 05:55] LABS: ADD MAN DIFF? NO
[2018-10-22 05:58] LABS: ABNORMAL IP MESSAGE 1; BASOPHILS % 0.1 % (0.0-2.0); HEMOGLOBIN 7.7 g/dl (14.0-18.0); LYMPHOCYTES # 2.3 10^3/ul (0.8-2.9); LYMPHOCYTES % 9.2 % (15.0-51.0); MEAN CORPUSCULAR HEMOGLOBIN 28.3 pg (29.0-33.0); MEAN CORPUSCULAR HGB CONC 32.1 g/dl (32.0-37.0); MEAN CORPUSCULAR VOLUME 88.2 fl (82.0-101.0); MEAN PLATELET VOLUME 10.4 fl (7.4-10.4); MONOCYTE # 1.5 10^3/ul (0.3-0.9); MONOCYTES % 5.9 % (0.0-11.0); NEUTROPHIL # 20.9 10^3/ul (1.6-7.5); NEUTROPHILS % 83.5 % (39.0-77.0); PLATELET COUNT 318 10^3/UL (140-415); POSITIVE DIFF @See below; RED BLOOD COUNT 2.72 10^6/ul (4.70-6.10); RED CELL DISTRIBUTION WIDTH 24.9 % (11.5-14.5)
[2018-10-22 05:58] LABS: WHITE BLOOD COUNT 25.1 10^3/ul (4.8-10.8)
[2018-10-22 06:18] LABS: ALANINE AMINOTRANSFERASE 35 IU/L (13-69); ALBUMIN 2.2 g/dl (3.3-4.9); ALBUMIN/GLOBULIN RATIO 0.64; ALKALINE PHOSPHATASE 673 IU/L (42-121); ANION GAP 7 (5-13); ASPARTATE AMINO TRANSFERASE 378 IU/L (15-46); BILIRUBIN,INDIRECT 0.4 mg/dl (0-1.1); BILIRUBIN,TOTAL 1.1 mg/dl (0.2-1.3); BLOOD UREA NITROGEN 26 mg/dl (7-20); CARBON DIOXIDE 21 mmol/L (21-31); CHLORIDE 109 mmol/L (97-110); CREATININE 1.43 mg/dl (0.61-1.24); Estimated GFR 50 mL/min (>60); GLUCOSE 121 mg/dl (70-220); POTASSIUM 3.7 mmol/L (3.5-5.1); SODIUM 137 mmol/L (135-144); TOTAL PROTEIN 5.6 g/dl (6.1-8.1)
[2018-10-22 06:18] LABS: PHOSPHORUS 3.2 mg/dl (2.5-4.9)
[2018-10-22] MEDS: MEROPENEM 500MG/50 ML (PMX) 50 ML IVPB ×2 (09:01→22:41)
[2018-10-22] MEDS: NA BICARBONATE 650 MG TAB PO (09:01)
[2018-10-22 15:16] LABS: LIPASE 1502 U/L (23-300)
[2018-10-23] MEDS: INSULIN ASPART [NOVOLOG] 3 ML PEN SC ×6 (01:50→20:44)
[2018-10-23] MEDS: PANTOPRAZOLE 40 MG INJ IV ×2 (05:24→17:34)
[2018-10-23 05:44] LABS: ADD MAN DIFF? NO
[2018-10-23 05:55] LABS: WHITE BLOOD COUNT 22.4 10^3/ul (4.8-10.8)
[2018-10-23 05:55] LABS: ABNORMAL IP MESSAGE 1; BASOPHILS % 0.2 % (0.0-2.0); HEMOGLOBIN 8.4 g/dl (14.0-18.0); LYMPHOCYTES # 2.5 10^3/ul (0.8-2.9); LYMPHOCYTES % 11.2 % (15.0-51.0); MEAN CORPUSCULAR HEMOGLOBIN 27.9 pg (29.0-33.0); MEAN CORPUSCULAR HGB CONC 31.1 g/dl (32.0-37.0); MEAN CORPUSCULAR VOLUME 89.7 fl (82.0-101.0); MEAN PLATELET VOLUME 10.5 fl (7.4-10.4); MONOCYTE # 1.4 10^3/ul (0.3-0.9); MONOCYTES % 6.3 % (0.0-11.0); NEUTROPHIL # 18.2 10^3/ul (1.6-7.5); NEUTROPHILS % 81.2 % (39.0-77.0); PLATELET COUNT 332 10^3/UL (140-415); POSITIVE DIFF @See below; RED BLOOD COUNT 3.01 10^6/ul (4.70-6.10); RED CELL DISTRIBUTION WIDTH 25.5 % (11.5-14.5)
[2018-10-23 06:21] LABS: LIPASE 1575 U/L (23-300)
[2018-10-23 06:26] LABS: ALANINE AMINOTRANSFERASE 33 IU/L (13-69); ALBUMIN 2.4 g/dl (3.3-4.9); ALBUMIN/GLOBULIN RATIO 0.66; ALKALINE PHOSPHATASE 724 IU/L (42-121); ANION GAP 7 (5-13); ASPARTATE AMINO TRANSFERASE 360 IU/L (15-46); BILIRUBIN,INDIRECT 0.5 mg/dl (0-1.1); BILIRUBIN,TOTAL 1.4 mg/dl (0.2-1.3); BLOOD UREA NITROGEN 22 mg/dl (7-20); CALCIUM 8.1 mg/dl (8.4-10.2); CARBON DIOXIDE 21 mmol/L (21-31); CHLORIDE 110 mmol/L (97-110); CREATININE 1.24 mg/dl (0.61-1.24); Estimated GFR 59 mL/min (>60); GLUCOSE 111 mg/dl (70-220); POTASSIUM 3.9 mmol/L (3.5-5.1); SODIUM 138 mmol/L (135-144)
[2018-10-23 06:44] LABS: MAGNESIUM 1.9 mg/dl (1.7-2.5)
[2018-10-23 06:44] LABS: PHOSPHORUS 2.9 mg/dl (2.5-4.9)
[2018-10-23] MEDS: MEROPENEM 500MG/50 ML (PMX) 50 ML IVPB ×2 (08:15→20:32)
[2018-10-23] MEDS: morphine SULFATE/PF (2 MG/2 ML) SYG IV ×3 (08:15→20:48)
[2018-10-23] MEDS: DEXTROSE 5%-0.45% NACL 1,000 ML IV (10:20)
[2018-10-23] MEDS ORDERED: DEXTROSE 50% 50 ML SYRINGE IV ×2 (14:00)
[2018-10-23] MEDS ORDERED: GLUCOSE GEL 15 GRAM TUBE BUCCAL (14:00)
[2018-10-23] MEDS ORDERED: GLUCAGON 1 MG INJ IM (14:00)
[2018-10-23] MEDS ORDERED: GLUCOSE GEL 15 GRAM TUBE PO ×2 (14:00)
[2018-10-23] MEDS ORDERED: BISACODYL 10 MG SUPP PR (14:30)
[2018-10-24] MEDS: morphine SULFATE/PF (2 MG/2 ML) SYG IV (01:13)
[2018-10-24] MEDS: ONDANSETRON 4 MG INJ IV ×3 (05:51→21:40)
[2018-10-24] MEDS: PANTOPRAZOLE 40 MG INJ IV ×2 (05:51→17:34)
[2018-10-24] MEDS: morphine 4 MG/ML VIAL IV ×4 (06:00→21:40)
[2018-10-24] MEDS: DEXTROSE 5%-0.45% NACL 1,000 ML IV (06:40)
[2018-10-24 06:45] LABS: HEMOGLOBIN A1C 5.1 % (0-5.9)
[2018-10-24 06:54] LABS: ALANINE AMINOTRANSFERASE 35 IU/L (13-69); ALBUMIN 2.4 g/dl (3.3-4.9); ALKALINE PHOSPHATASE 631 IU/L (42-121); AMYLASE 280 U/L (11-123); ASPARTATE AMINO TRANSFERASE 308 IU/L (15-46); BILIRUBIN,INDIRECT 0.7 mg/dl (0-1.1); BILIRUBIN,TOTAL 1.8 mg/dl (0.2-1.3); TOTAL PROTEIN 6.3 g/dl (6.1-8.1)
[2018-10-24] MEDS: INSULIN ASPART [NOVOLOG] 3 ML PEN SC ×4 (07:00→21:00)
[2018-10-24 07:03] LABS: ALANINE AMINOTRANSFERASE 35 IU/L (13-69); ALBUMIN 2.5 g/dl (3.3-4.9); ALKALINE PHOSPHATASE 642 IU/L (42-121); ANION GAP 10 (5-13); ASPARTATE AMINO TRANSFERASE 305 IU/L (15-46); BILIRUBIN,INDIRECT 0.7 mg/dl (0-1.1); BILIRUBIN,TOTAL 1.8 mg/dl (0.2-1.3); BLOOD UREA NITROGEN 22 mg/dl (7-20); CALCIUM 8.1 mg/dl (8.4-10.2); CARBON DIOXIDE 21 mmol/L (21-31); CHLORIDE 106 mmol/L (97-110); Estimated GFR > 60 mL/min (>60); GLUCOSE 123 mg/dl (70-220); SODIUM 137 mmol/L (135-144); TOTAL PROTEIN 6.6 g/dl (6.1-8.1)
[2018-10-24 07:09] LABS: LIPASE 2134 U/L (23-300)
[2018-10-24] MEDS: MEROPENEM 500MG/50 ML (PMX) 50 ML IVPB ×2 (08:20→21:40)
[2018-10-24] MEDS: BISACODYL (EC) 5 MG TAB PO (12:35)
[2018-10-25] MEDS: ONDANSETRON 4 MG INJ IV ×5 (02:15→20:32)
[2018-10-25] MEDS: morphine 4 MG/ML VIAL IV ×5 (02:15→20:32)
[2018-10-25] MEDS: PANTOPRAZOLE 40 MG INJ IV ×2 (05:46→16:41)
[2018-10-25] MEDS: DEXTROSE 5%-0.45% NACL 1,000 ML IV (05:49)
[2018-10-25 06:00] LABS: ADD MAN DIFF? NO
[2018-10-25 06:15] LABS: WHITE BLOOD COUNT 17.1 10^3/ul (4.8-10.8)
[2018-10-25 06:15] LABS: ABNORMAL IP MESSAGE 1; BASOPHILS % 0.1 % (0.0-2.0); EOSINOPHILS % 0.1 % (0.0-7.0); HEMATOCRIT 23.4 % (42.0-52.0); HEMOGLOBIN 7.4 g/dl (14.0-18.0); LYMPHOCYTES # 1.7 10^3/ul (0.8-2.9); LYMPHOCYTES % 9.9 % (15.0-51.0); MEAN CORPUSCULAR HEMOGLOBIN 28.7 pg (29.0-33.0); MEAN CORPUSCULAR HGB CONC 31.6 g/dl (32.0-37.0); MEAN CORPUSCULAR VOLUME 90.7 fl (82.0-101.0); MEAN PLATELET VOLUME 10.8 fl (7.4-10.4); MONOCYTE # 1.4 10^3/ul (0.3-0.9); MONOCYTES % 8.2 % (0.0-11.0); NEUTROPHIL # 13.8 10^3/ul (1.6-7.5); NEUTROPHILS % 80.7 % (39.0-77.0); PLATELET COUNT 235 10^3/UL (140-415); POSITIVE DIFF @See below; RED BLOOD COUNT 2.58 10^6/ul (4.70-6.10)
[2018-10-25 06:20] LABS: ANION GAP 5 (5-13); BLOOD UREA NITROGEN 24 mg/dl (7-20); CALCIUM 7.9 mg/dl (8.4-10.2); CARBON DIOXIDE 21 mmol/L (21-31); CHLORIDE 110 mmol/L (97-110); CREATININE 1.12 mg/dl (0.61-1.24); Estimated GFR > 60 mL/min (>60); GLUCOSE 100 mg/dl (70-220); POTASSIUM 3.8 mmol/L (3.5-5.1); SODIUM 136 mmol/L (135-144)
[2018-10-25 06:21] LABS: ALANINE AMINOTRANSFERASE 34 IU/L (13-69); ALBUMIN 2.1 g/dl (3.3-4.9); ALKALINE PHOSPHATASE 462 IU/L (42-121); ASPARTATE AMINO TRANSFERASE 235 IU/L (15-46); BILIRUBIN,INDIRECT 0.6 mg/dl (0-1.1); BILIRUBIN,TOTAL 1.7 mg/dl (0.2-1.3); TOTAL PROTEIN 5.5 g/dl (6.1-8.1)
[2018-10-25] MEDS: INSULIN ASPART [NOVOLOG] 3 ML PEN SC ×4 (07:00→21:00)
[2018-10-25] MEDS: MEROPENEM 500MG/50 ML (PMX) 50 ML IVPB ×2 (08:30→20:32)
[2018-10-25] MEDS: POLYETHYLENE GLYCOL 17 GM PACKET PO (11:31)
[2018-10-25] MEDS: LUBIPROSTONE 8 MCG CAPSULE PO ×2 (12:57→21:46)
[2018-10-25] MEDS: FUROSEMIDE 20 MG INJ IV (14:23)
[2018-10-26] MEDS: ONDANSETRON 4 MG INJ IV ×2 (00:35→04:37)
[2018-10-26] MEDS: morphine 4 MG/ML VIAL IV ×4 (00:36→16:49)
[2018-10-26] MEDS: PANTOPRAZOLE 40 MG INJ IV ×2 (05:00→17:45)
[2018-10-26 05:46] LABS: ADD MAN DIFF? NO
[2018-10-26 05:48] LABS: WHITE BLOOD COUNT 18.5 10^3/ul (4.8-10.8)
[2018-10-26 05:48] LABS: ABNORMAL IP MESSAGE 1; BASOPHILS % 0.1 % (0.0-2.0); HEMATOCRIT 26.6 % (42.0-52.0); HEMOGLOBIN 8.3 g/dl (14.0-18.0); LYMPHOCYTES # 1.4 10^3/ul (0.8-2.9); LYMPHOCYTES % 7.8 % (15.0-51.0); MEAN CORPUSCULAR HEMOGLOBIN 28.3 pg (29.0-33.0); MEAN CORPUSCULAR HGB CONC 31.2 g/dl (32.0-37.0); MEAN CORPUSCULAR VOLUME 90.8 fl (82.0-101.0); MEAN PLATELET VOLUME 10.7 fl (7.4-10.4); MONOCYTE # 1.3 10^3/ul (0.3-0.9); MONOCYTES % 7.1 % (0.0-11.0); NEUTROPHIL # 15.6 10^3/ul (1.6-7.5); NEUTROPHILS % 83.9 % (39.0-77.0); PLATELET COUNT 255 10^3/UL (140-415); POSITIVE DIFF @See below; RED BLOOD COUNT 2.93 10^6/ul (4.70-6.10); RED CELL DISTRIBUTION WIDTH 24.4 % (11.5-14.5)
[2018-10-26 07:45] LABS: ANION GAP 7 (5-13); BLOOD UREA NITROGEN 28 mg/dl (7-20); CALCIUM 8.1 mg/dl (8.4-10.2); CARBON DIOXIDE 19 mmol/L (21-31); CHLORIDE 111 mmol/L (97-110); CREATININE 1.31 mg/dl (0.61-1.24); Estimated GFR 55 mL/min (>60); GLUCOSE 111 mg/dl (70-220); POTASSIUM 3.6 mmol/L (3.5-5.1); SODIUM 137 mmol/L (135-144)
[2018-10-26] MEDS: INSULIN ASPART [NOVOLOG] 3 ML PEN SC ×4 (08:03→20:47)
[2018-10-26] MEDS: LUBIPROSTONE 8 MCG CAPSULE PO ×2 (09:12→20:42)
[2018-10-26] MEDS: POLYETHYLENE GLYCOL 17 GM PACKET PO (09:12)
[2018-10-26] MEDS: MEROPENEM 500MG/50 ML (PMX) 50 ML IVPB ×2 (09:16→20:42)
[2018-10-26] MEDS ORDERED: BISACODYL (EC) 5 MG TAB PO (10:30)
[2018-10-26] MEDS: BISACODYL (EC) 5 MG TAB PO (11:02)
[2018-10-26] MEDS: DEXTROSE 5%-0.45% NACL 1,000 ML IV (16:41)
[2018-10-27 05:39] LABS: ADD MAN DIFF? NO
[2018-10-27 05:49] LABS: ABNORMAL IP MESSAGE 1; BASOPHILS % 0.1 % (0.0-2.0); HEMATOCRIT 26.2 % (42.0-52.0); HEMOGLOBIN 8.2 g/dl (14.0-18.0); LYMPHOCYTES # 1.6 10^3/ul (0.8-2.9); MEAN CORPUSCULAR HEMOGLOBIN 28.5 pg (29.0-33.0); MEAN CORPUSCULAR HGB CONC 31.3 g/dl (32.0-37.0); MEAN PLATELET VOLUME 10.5 fl (7.4-10.4); MONOCYTE # 1.2 10^3/ul (0.3-0.9); NEUTROPHIL # 14.3 10^3/ul (1.6-7.5); NEUTROPHILS % 82.8 % (39.0-77.0); PLATELET COUNT 230 10^3/UL (140-415); POSITIVE DIFF @See below; RED BLOOD COUNT 2.88 10^6/ul (4.70-6.10); RED CELL DISTRIBUTION WIDTH 24.3 % (11.5-14.5)
[2018-10-27 05:49] LABS: WHITE BLOOD COUNT 17.3 10^3/ul (4.8-10.8)
[2018-10-27] MEDS: PANTOPRAZOLE 40 MG INJ IV ×2 (05:49→17:44)
[2018-10-27 06:08] LABS: INR 1.61; PROTIME 19.2 Sec (11.9-14.9); PT RATIO 1.5
[2018-10-27 06:09] LABS: PARTIAL THROMBOPLASTIN TIME 36.1 Sec (23.0-35.0)
[2018-10-27 06:51] LABS: ALANINE AMINOTRANSFERASE 32 IU/L (13-69); ALBUMIN 2.4 g/dl (3.3-4.9); ALBUMIN/GLOBULIN RATIO 0.58; ALKALINE PHOSPHATASE 458 IU/L (42-121); AMYLASE 179 U/L (11-123); ANION GAP 10 (5-13); ASPARTATE AMINO TRANSFERASE 322 IU/L (15-46); BILIRUBIN,INDIRECT 0.6 mg/dl (0-1.1); BILIRUBIN,TOTAL 1.9 mg/dl (0.2-1.3); BLOOD UREA NITROGEN 34 mg/dl (7-20); CALCIUM 8.1 mg/dl (8.4-10.2); CARBON DIOXIDE 20 mmol/L (21-31); CHLORIDE 108 mmol/L (97-110); Estimated GFR 51 mL/min (>60); GLUCOSE 100 mg/dl (70-220); LIPASE 874 U/L (23-300); POTASSIUM 3.9 mmol/L (3.5-5.1); SODIUM 138 mmol/L (135-144); TOTAL PROTEIN 6.5 g/dl (6.1-8.1)
[2018-10-27 06:54] LABS: PHOSPHORUS 4.1 mg/dl (2.5-4.9)
[2018-10-27 06:54] LABS: MAGNESIUM 1.8 mg/dl (1.7-2.5)
[2018-10-27] MEDS: INSULIN ASPART [NOVOLOG] 3 ML PEN SC ×4 (07:00→21:00)
[2018-10-27] MEDS: POLYETHYLENE GLYCOL 17 GM PACKET PO (08:44)
[2018-10-27] MEDS: MEROPENEM 500MG/50 ML (PMX) 50 ML IVPB ×2 (08:44→20:58)
[2018-10-27] MEDS: LUBIPROSTONE 8 MCG CAPSULE PO ×2 (08:45→21:07)
[2018-10-27] MEDS ORDERED: IOHEXOL 300MG/ML 30 ML BTL (10:43)
[2018-10-27] MEDS ORDERED: MIDAZOLAM 1 MG/ML 2 ML INJ (10:51)
[2018-10-27] MEDS ORDERED: PROPOFOL 20 ML ×3 (10:51→11:58)
[2018-10-27] MEDS ORDERED: FENTAnyl 50 MCG/ML VIAL (10:51)
[2018-10-27] MEDS ORDERED: GLUCAGON 1 MG INJ (10:58)
[2018-10-27] MEDS ORDERED: FENTAnyl 50 MCG/ML VIAL IV ×2 (11:00)
[2018-10-27] MEDS ORDERED: hydrALAzine 20 MG INJ IV (11:00)
[2018-10-27] MEDS ORDERED: LABETALOL HCL 20MG INJ IV (11:00)
[2018-10-27] MEDS ORDERED: MEPERIDINE 25 MG INJ IV (11:00)
[2018-10-27] MEDS ORDERED: HYDROmorphONE 1 MG/5 ML IV SYRINGE IV ×2 (11:00)
[2018-10-27] MEDS ORDERED: METOCLOPRAMIDE 10 MG INJ IV (11:00)
[2018-10-27] MEDS ORDERED: ONDANSETRON 4 MG INJ IV (11:00)
[2018-10-27] MEDS ORDERED: DIPHENHYDRAMINE 50 MG INJ IV (11:00)
[2018-10-27] MEDS ORDERED: EPHEDrine SULFATE 50 MG/5 ML SYG IV (11:00)
[2018-10-27] MEDS ORDERED: METOCLOPRAMIDE 10 MG INJ (11:02)
[2018-10-27] MEDS ORDERED: ONDANSETRON 4 MG INJ (11:02)
[2018-10-27] MEDS ORDERED: DEXAMETHASONE 4 MG/ML 5 ML INJ (11:04)
[2018-10-27] MEDS: DEXTROSE 5%-0.45% NACL 1,000 ML IV (16:27)
[2018-10-27] MEDS: morphine 4 MG/ML VIAL IV (19:55)
[2018-10-28] MEDS: morphine 4 MG/ML VIAL IV ×5 (00:05→16:33)
[2018-10-28] MEDS: PANTOPRAZOLE 40 MG INJ IV (05:13)
[2018-10-28 05:38] LABS: ADD MAN DIFF? NO
[2018-10-28 05:42] LABS: WHITE BLOOD COUNT 17.3 10^3/ul (4.8-10.8)
[2018-10-28 05:43] LABS: ABNORMAL IP MESSAGE 1; BASOPHILS % 0.2 % (0.0-2.0); HEMATOCRIT 27.3 % (42.0-52.0); HEMOGLOBIN 8.6 g/dl (14.0-18.0); LYMPHOCYTES # 0.9 10^3/ul (0.8-2.9); LYMPHOCYTES % 5.4 % (15.0-51.0); MEAN CORPUSCULAR HEMOGLOBIN 28.7 pg (29.0-33.0); MEAN CORPUSCULAR HGB CONC 31.5 g/dl (32.0-37.0); MEAN PLATELET VOLUME 10.5 fl (7.4-10.4); MONOCYTE # 0.5 10^3/ul (0.3-0.9); MONOCYTES % 3.1 % (0.0-11.0); NEUTROPHIL # 15.6 10^3/ul (1.6-7.5); NEUTROPHILS % 90.1 % (39.0-77.0); PLATELET COUNT 241 10^3/UL (140-415); POSITIVE DIFF @See below; RED CELL DISTRIBUTION WIDTH 24.1 % (11.5-14.5)
[2018-10-28 06:06] LABS: MAGNESIUM 1.9 mg/dl (1.7-2.5)
[2018-10-28 06:06] LABS: PHOSPHORUS 4.9 mg/dl (2.5-4.9)
[2018-10-28 06:21] LABS: ANION GAP 12 (5-13); BLOOD UREA NITROGEN 39 mg/dl (7-20); CALCIUM 7.9 mg/dl (8.4-10.2); CARBON DIOXIDE 20 mmol/L (21-31); CHLORIDE 107 mmol/L (97-110); CREATININE 1.44 mg/dl (0.61-1.24); Estimated GFR 49 mL/min (>60); GLUCOSE 143 mg/dl (70-220); POTASSIUM 4.2 mmol/L (3.5-5.1); SODIUM 139 mmol/L (135-144)
[2018-10-28] MEDS: INSULIN ASPART [NOVOLOG] 3 ML PEN SC ×2 (07:00→12:10)
[2018-10-28] MEDS: MEROPENEM 500MG/50 ML (PMX) 50 ML IVPB (08:46)
[2018-10-28] MEDS: POLYETHYLENE GLYCOL 17 GM PACKET PO (08:46)
[2018-10-28] MEDS: LUBIPROSTONE 8 MCG CAPSULE PO (08:46)
[2018-10-28] MEDS: ONDANSETRON 4 MG INJ IV (16:51)
== END 2018-10-28 17:30 | disposition hospice, home (50) | DRG 871 ==
LOC: E/R 22:30 → 6WM 10-22 18:19 → TEL 10-16 03:27 → PP2 10-16 19:08
PROC: 0FPB8DZ Removal of Intraluminal Device from Hepatobiliary Duct, Via Natural or Artificial Opening Endoscopic (ICD-10-PCS; principal; 2018-10-17 11:00)
PROC: 0DB98ZX Excision of Duodenum, Via Natural or Artificial Opening Endoscopic, Diagnostic (ICD-10-PCS; 2018-10-17 11:00)
PROC: 0FJB8ZZ Inspection of Hepatobiliary Duct, Via Natural or Artificial Opening Endoscopic (ICD-10-PCS; 2018-10-17 11:35)
DX: A41.9 Sepsis, unspecified organism (principal); K83.1 Obstruction of bile duct; N17.0 Acute kidney failure with tubular necrosis; K85.90 Acute pancreatitis without necrosis or infection, unspecified; E87.2 Acidosis; K83.09 Other cholangitis; C22.1 Intrahepatic bile duct carcinoma; C78.7 Secondary malignant neoplasm of liver and intrahepatic bile duct; C78.4 Secondary malignant neoplasm of small intestine; N39.0 Urinary tract infection, site not specified; R65.20 Severe sepsis without septic shock; B95.2 Enterococcus as the cause of diseases classified elsewhere; D63.8 Anemia in other chronic diseases classified elsewhere; D64.81 Anemia due to antineoplastic chemotherapy; D72.829 Elevated white blood cell count, unspecified; R60.1 Generalized edema
CPT/HCPCS: 36415; 71045; 74018; 74176; 74181; 74330; 76705; 76775; 80048; 80053; 80061; 80076; 80202; 81001; 82150; 82270; 82607; 82728; 82746; 82962; 83036; 83540; 83605; 83615; 83690; 83735; 83880; 84100; 84484; 85025; 85045; 85610; 85730; 87040; 87045; 87075; 87086; 88305; 93005; 93970; 96374; 96375; 99291-25